=== PATIENT | female | born 1990 | race Hispanic/Latino ===

== ENCOUNTER 2024-01-22 15:18 | Emergency (ER) | payer BC, SELFPAY ==
[2024-01-22 15:23] VITALS: BP 136/98
[2024-01-22 15:24] LABS: Glucose - Point of Care 314 mg/dl (70-99)
--- NOTE | 2024-01-22 16:12 | ED.GENMED ---
History of Present Illness
General
Chief Complaint: Weakness
Source: patient
Time Seen by Provider: 01/22/24 16:01
History of Present Illness
History of Present Illness:
33-year-old female presents to the emergency room complaining of blurred vision, feeling weak. Patient has type 2 diabetes for which she takes metformin. Patient states she is been compliant with her metformin. She does not live in the area but
is visiting the area for a camp of some sort. The food selections at the camp are making it difficult for her to control her carbohydrate intake. Patient typically uses a Dexcom but does not have it with her. She has not checked her sugar in some
time and is concerned her sugar is high. Patient also having abdominal pain from 'endometriosis'. She says when she has this pain in [place] they give her Dilaudid. Patient denies any fever, chills, nausea or vomiting. She denies any dysuria or
frequency. She denies any vaginal discharge.
Phy Exam
Physical Exam
Physical Exam:
General: Awake, Alert, Oriented X3. No acute distress.
Vitals: unremarkable
Head: Atraumatic
Eyes: Pupils equal, EOMI
Throat: Airway intact, no exudates
Neck: Trachea midline
Lungs: Clear and equal b/l
Heart: Regular rate, no murmurs
Abd: Soft, mild lower abdominal tenderness, no pulsatile mass
Neuro: Nonfocal
Skin: Warm, dry, no rash
Extremities: pulses equal b/l, no edema
Course
Orders/Labs/Results
Orders:
Orders
01/22/24 16:10
0.9% Sodium Chloride 1000 ml [Nss] 1,000 ml IV BOLUS
Ketorolac [Toradol] 15 mg IV NOW STA
Test Result ONCE
01/22/24 16:26
B-Hydroxybutyrate Urgent
Complete Blood Count/With Diff Urgent
Comprehensive Metabolic Panel Urgent
HCG, Serum Qualitative Screen Urgent
Lipase Urgent
Urinalysis Reflex To Culture Urgent
Date Specimen was Collected: 01/22/24
Time Specimen was Collected: 16:23
Urine Microscopic Reflex Cult Urgent
Abnormal Lab Results
01/22/24 01/22/24 01/22/24
15:23 16:26 18:54
Carbon Dioxide 19 L mmol/L
(22-30)
Creatinine 0.4 L mg/dL
(0.6-1.0)
Glucose 284 H mg/dl
(70-99)
Total Bilirubin 1.6 H mg/dl
(0.2-1.3)
ALT 46 H U/L
(0-35)
Alkaline Phosphatase 135 H U/L
(38-126)
Urine Ketones Trace A
(Negative)
Ur Occult Blood Reflex 4+ A
(Negative)
Leukocyte Esterase Rfl Trace A
(Negative)
Urine RBC >100 A /HPF
(0-2)
Urine Bacteria (Reflex) Few A
(Negative)
Urine Glucose 3+ A
(Negative)
POC Glucose 314 H mg/dl 220 H mg/dl
(70-99) (70-99)
01/22/24 16:26
01/22/24 16:26
Vital Signs
Initial and Last Documented VS:
Initial Vital Signs
Pulse Resp BP Pulse Ox
68 17 136/98 98
01/22/24 15:23 01/22/24 15:23 01/22/24 15:23 01/22/24 15:23
Last Documented Vital Signs
Temp Pulse Resp BP Pulse Ox
97.9 F 66 16 128/66 98
01/22/24 19:40 01/22/24 19:40 01/22/24 19:40 01/22/24 19:40 01/22/24 19:40
MDM/Problems Addressed
Differential Diagnosis Includes:
Dehydration, hyperglycemia, DKA
MDM/Problems Addressed:
Patient presents with high blood glucose. She does not have an anion gap. On physical exam she does appear a bit dry. She feels better after IV fluids. Her sugar came down to the mid 200s. We will increase her Glucophage to 1000 mg in the
morning and 500 mg in the evening. Patient stable for discharge. Recommend she follow-up with her primary when she returns home.
Acute Exacerbation and/or Progression of Chronic Illness: DM
*Pulse Oximetry
Patient hypoxic: no
*Critical Care Note
Total Time (30-74mins, 75-104mins- exclusive of procedures): Not Applicable
Patient Management
Social determinants of health affecting care: Living situation
ED Attending Note
-
Portions of this chart may have been created with voice recognition software.� Occasional wrong word or��sound alike� substitutions may have occurred due to the inherent limitations of voice recognition software.
Discharge Plan
Departure
Patient Disposition: Home (Routine Discharge)
Date of Disposition: 01/22/24
Time of Disposition: 18:56
Patient with high blood pressure during this ER visit?: No
Discharge Problem:
Acute hyperglycemia, Diabetes type 2, uncontrolled
Instructions: High Blood Sugar, Adult ED
Prescriptions:
No Action
metformin 500 mg Tablet
500 mg PO BID
Referrals:
UNKNOWN - PT DOES,NOT KNOW [Family Provider] -
Activity Restrictions/Additional Instructions:
Increase the dose of metformin to 1000mg (two tablets) in the morning and 500mg (one tablet) at night. Try and be consistent with your diet.
Interventions
Interventions:
*Risk Screen - Suicide Last Done: 01/22/24 16:19
*General Assessment Last Done: 01/22/24 15:24
*Neglect/Abuse Screening Last Done: 01/22/24 16:19
ED- Fall Risk Assessment Last Done: 01/22/24 19:40
*ED COVID-19 Vaccine History Last Done: 01/22/24 15:24
*Nursing Disposition Last Done: 01/22/24 19:40
ED- Cardiac Assessment Last Done: 01/22/24 16:18
ED- Neurological Assessment Last Done: 01/22/24 16:18
ED- Pulmonary Assessment Last Done: 01/22/24 16:18
Discharge Date and Time
Discharge Date/Time: 01/22/24 19:42
Print Language: SAMI
[2024-01-22 16:18] VITALS: BMI 43.7
[2024-01-22 16:25] VITALS: BP 131/87
[2024-01-22] MEDS: NSS 1000 IV (16:25)
[2024-01-22] MEDS: TORADOL 15 MG IV (16:25)
[2024-01-22 16:35] LABS: % Basophils 0.6 % (0-2); % Eosinophils 0.7 % (0-6); % Immature Granulocytes 0.2 % (0-0.5); % Lymphocytes 26.9 % (20.5-51.1); % Monocytes 4.7 % (1.7-9.3); % Neutrophils 66.9 % (42.2-75.2); Absolute Basophils 0.1 10^3/uL (0-0.2); Absolute Eosinophils 0.1 10^3/uL (0-0.7); Absolute Lymphocytes 2.4 10^3/uL (1.2-3.4); Absolute Monocytes 0.4 10^3/uL (0.1-0.6); Hematocrit 39.5 % (37.0-47.0); Hemoglobin 13.8 g/dL (12.0-16.0); Mean Corp Hgb Conc. 34.9 g/dL (33.0-37.0); Mean Corpuscular Hgb 29.2 pg (27.0-31.0); Mean Corpuscular Volume 83.5 fL (81.0-99.0); Mean Platelet Volume 9.2 fL (7.4-10.4); Nucleated Red Blood Cells % 0 %; Platelet Count 260 10^3/uL (130-400); Red Blood Cell Count 4.73 10^6/uL (4.20-5.40); Red Cell Dist. Width 11.8 % (11.5-14.5)
[2024-01-22 16:38] LABS: Urine Albumin Trace (Neg - Trace); Urine Bilirubin Negative (Negative); Urine Character Very Cloudy (Clear); Urine Color Yellow; Urine Glucose 3+ (Negative); Urine Ketone Trace (Negative); Urine Leukocyte Trace (Negative); Urine Nitrite Negative (Negative); Urine Occult Blood 4+ (Negative); Urine Specific Gravity 1.025 (<1.030); Urine Urobilinogen Negative (Neg - 1+)
[2024-01-22 16:52] LABS: HCG, Serum Qualitative Screen Negative
[2024-01-22 16:55] LABS: ALT (SGPT) 46 U/L (0-35); AST (SGOT) 35 U/L (14-36); Albumin 3.9 g/dl (3.5-5.0); Alkaline Phosphatase 135 U/L (38-126); Blood Urea Nitrogen 13 mg/dl (7-17); Calcium 9.3 mg/dl (8.4-10.2); Carbon Dioxide 19 mmol/L (22-30); Chloride 107 mmol/L (98-107); Estimated Creatinine Clearance > 125 ml/min; Glucose 284 mg/dl (70-99); Sodium 135 mmol/L (135-145); Total Bilirubin 1.6 mg/dl (0.2-1.3); Total Protein 6.8 g/dl (6.3-8.2); eGFR > 60.00
[2024-01-22 16:57] LABS: Urine Bacteria Few (Negative); Urine Red Blood Cell >100 /HPF (0-2); Urine Squamous Cell >30 /LPF (Few); Urine White Cell 0-2 /HPF (0-5)
[2024-01-22 17:14] LABS: Lipase 53 U/L (23-300)
[2024-01-22 17:20] LABS: B-Hydroxybutyrate 0.19 mmol/L (0.02-0.27)
[2024-01-22 18:13] VITALS: BP 126/83
[2024-01-22 18:57] LABS: Glucose - Point of Care 220 mg/dl (70-99)
[2024-01-22 19:40] VITALS: BP 128/66
== END 2024-01-22 19:42 | disposition home or self-care (01) ==
LOC: EMR 15:18
PROVIDERS: EMERGENCY PHYSICIAN Emergency Medicine
DX: E11.65 Type 2 diabetes mellitus with hyperglycemia (principal)
CPT/HCPCS: 99284; 96374; 96361; 80053; 81003; 81015; 82010; 82962; 83690; 84703; 85025